=== PATIENT | female | born 1960 | race Caucasian/White ===

== ENCOUNTER 2020-09-09 08:01 | Outpatient (REF) | payer OTHER, SELFPAY | END 2020-09-09 08:02 | disposition home or self-care (01) | LOC: HO.LAB 08:01 | PROVIDERS: Visit Provider Internal Medicine | DX: Z20.822 Contact with and (suspected) exposure to COVID-19 (principal) | CPT/HCPCS: 36415; C9803; U0003 ==

== ENCOUNTER 2021-11-20 06:01 | Outpatient (REF) | payer OTHER, SELFPAY ==
--- NOTE | ~2021-11-20 | XR_ITS ---
EXAMINATION: BILATERAL HAND X-RAY CLINICAL INFORMATION: Pain COMPARISON: None TECHNIQUE: 3 views of each hand FINDINGS: Right: Bone alignment is normal. There is an old healed right distal radius fracture. No acute fracture or dislocation is seen. There is arthritis at the DIP joint of the fifth finger. Soft tissues are normal. Left: Bone alignment is normal. No fracture or dislocation is seen. There is arthritis at the DIP joints of the second and third fingers. Soft tissues are normal. XR/XR hand RT min 3V IMPRESSION: Old healed right distal radius fracture. Arthritis at the DIP joints.
--- NOTE | ~2021-11-20 | XR_ITS ---
EXAMINATION: BILATERAL HAND X-RAY CLINICAL INFORMATION: Pain COMPARISON: None TECHNIQUE: 3 views of each hand FINDINGS: Right: Bone alignment is normal. There is an old healed right distal radius fracture. No acute fracture or dislocation is seen. There is arthritis at the DIP joint of the fifth finger. Soft tissues are normal. Left: Bone alignment is normal. No fracture or dislocation is seen. There is arthritis at the DIP joints of the second and third fingers. Soft tissues are normal. XR/XR hand LT min 3V IMPRESSION: Old healed right distal radius fracture. Arthritis at the DIP joints.
[2021-11-20 06:28] LABS: MANUAL DIFF FLAG NO
[2021-11-20 07:22] LABS: Basophils Percent Auto 0.5 % (0-2); Eosinophils Absolute Auto 0.1 X10*3/uL (0.0-0.4); Eosinophils Percent Auto 1.6 % (0-4); Hematocrit 41.6 % (37.0-47.0); Hemoglobin 13.8 g/dl (12.0-16.0); Imm Gran Abs Auto 0.02 X10*3/uL (0.00-0.03); Imm Gran Pct Auto 0.3 % (0.0-0.4); Lymphocytes Absolute Auto 2.4 X10*3/uL (1.2-4.9); Lymphocytes Percent Auto 37.9 % (20-40); Mean Corpuscular HGB Conc 33.2 g/dl (31.0-35.0); Mean Corpuscular Hemoglobin 28.8 pg (27.0-33.0); Mean Corpuscular Volume 86.7 fL (80.0-98.0); Mean Platelet Volume 9.2 fL (9.4-12.3); Monocytes Absolute Auto 0.4 X10*3/uL (0.1-1.2); Neutrophils Absolute Auto 3.3 x10*3/uL (2.0-8.3); Neutrophils Percent Auto 52.7 % (45-73); Platelet Count 240 X10*3/uL (160-400); Red Cell Distribution Width 13.1 % (11.0-16.0); White Blood Count 6.3 X10*3/uL (4.8-10.8)
[2021-11-20 07:29] LABS: Estimated Average Glucose 111 mg/dL; Hemoglobin A1c % 5.5 %
[2021-11-20 07:51] LABS: Alanine Aminotransferase 21 U/L (0-31); Alkaline Phosphatase 113 U/L (39-117); Anion Gap 14 (12-20); Aspartate Amino Transferase 20 U/L (5-31); Bilirubin Total 0.6 mg/dL (0.0-1.0); Blood Urea Nitrogen 15 mg/dL (9-16); C Reactive Protein 0.23 mg/dL (< or = 0.50); Calcium 9.1 mg/dL (8.4-10.2); Carbon Dioxide 19 mmol/L (22-29); Chloride 112 mmol/L (96-108); Cholesterol 198 mg/dL; Estimated Glomerular Filt Rate > 60; Glucose Random 91 mg/dL (60-115); HDL Cholesterol 41 mg/dL; Potassium 3.9 mmol/L (3.3-5.1); Rheumatoid Factor < 15.0 IU/mL (<15.0); Sodium 141 mmol/L (135-145); Total Protein 6.7 g/dL (6.5-8.0); Triglycerides 412 mg/dL
[2021-11-20 08:09] LABS: Erythrocyte Sedimentation Rate 7 MM/HR (0-20)
[2021-11-20 08:12] LABS: TSH reflex Free T4 3.92 uIU/mL (0.32-4.0)
[2021-11-20 08:37] LABS: ~HepC Num1 0.08 S/CO (0.00-0.79); ~Hepatitis C Antibody Nonreactive (Nonreactive)
[2021-11-20 09:01] LABS: HBsAGNum1 0.22 S/CO (0.00-0.99); HIV AB/AG Nonreactive (Nonreactive); HIV Num 1 0.05 S/CO (0.00-0.99); Hepatitis B Core Antibody Nonreactive (Nonreactive); Hepatitis B Surface Antigen Negative (Negative)
[2021-11-20 09:07] LABS: ~Hepatitis B Surface Antibody NONREACTIVE (Nonreactive)
[2021-11-20 10:09] LABS: Syphilis Screen Nonreactive (Nonreactive)
[2021-11-22 08:17] LABS: Hepatitis A Antibody IgG Nonreactive (Nonreactive)
[2021-11-22 12:27] LABS: Anti Nuclear Antibody Screen NEGATIVE (NEGATIVE)
[2021-11-23 18:17] LABS: Cyclic Citrullinated Peptide <16 UNITS
[2021-11-25 12:56] LABS: Vitamin D 25-OH, D2 <4 ng/mL; Vitamin D 25-OH, D3 6 ng/mL; Vitamin D 25-OH, Total 6 ng/mL (30-100)
== END 2021-11-20 06:02 | disposition home or self-care (01) ==
LOC: HO.LAB 06:01
PROVIDERS: PCP Nurse Practitioner Family; Visit Provider Nurse Practitioner Family
DX: Z00.00 Encounter for general adult medical examination without abnormal findings (principal); F43.23 Adjustment disorder with mixed anxiety and depressed mood; M79.641 Pain in right hand; M79.642 Pain in left hand
CPT/HCPCS: 36415; 73130; 80053; 80061; 82306; 83036; 84443; 85025; 85652; 86038; 86039; 86140; 86200; 86431; 86592; 86704; 86706; 86708; 86780; 86803; 87340; 87389

== ENCOUNTER 2021-12-19 07:32 | Outpatient (REF) | payer OTHER, SELFPAY ==
--- NOTE | ~2021-12-19 | MM_ITS ---
EXAMINATION: MM SCREENING DIGITAL BREAST TOMOSYNTHESIS, BILATERAL CLINICAL INFORMATION: Screening. Asymptomatic. Benign right breast biopsy for calcifications 02/16/2013 (Benign breast tissue with a few microcysts with associated intraluminal polarizable microcalcifications). The lifetime risk of breast cancer based on the Tyrer-Cuzick Model is 5%. COMPARISON: Mammography: 05/31/2017, 12/14/2013, 02/16/2013, 11/21/2012, 11/13/2012 TECHNIQUE: Digital breast tomosynthesis is performed in both the craniocaudal and mediolateral oblique views along with computer-aided detection (CAD). Synthesized 2D images are generated from the tomosynthesis. FINDINGS: The breasts are heterogeneously dense, which may obscure small masses (ACR BI-RADS breast composition Category c). Parenchymal pattern is similar to prior study. There is no developing density or interval mass or architectural abnormality. There are scattered punctate calcifications in each breast similar to prior exam. The axilla and skin contours are unremarkable. There is old biopsy clip marker again seen right breast central mid lower inner quadrant. No significant changes. MM/MM tomosynthesis screening BI IMPRESSION: No mammographic evidence of malignancy. ASSESSMENT: BI-RADS 2: Benign RECOMMENDATION: Routine annual mammography screening. This patient's information was entered into a reminder system with a target due date for their next mammogram.
== END 2021-12-19 07:33 | disposition home or self-care (01) ==
LOC: HO.MAMMO 07:32
PROVIDERS: PCP Nurse Practitioner Family; Visit Provider Nurse Practitioner Family
DX: Z12.31 Encounter for screening mammogram for malignant neoplasm of breast (principal)
CPT/HCPCS: 77063; 77067

== ENCOUNTER → 2022-04-24 13:55 | Outpatient (BNVA) | payer OTHER, SELFPAY | PROVIDERS: PCP Nurse Practitioner Family; Visit Provider Orthopaedic Surgery | DX: M65.331 Trigger finger, right middle finger (principal); R20.0 Anesthesia of skin | CPT/HCPCS: 99202 ==

== ENCOUNTER 2022-05-03 09:56 | Outpatient (REF) | payer OTHER, SELFPAY ==
--- NOTE | 2022-05-03 09:59 | EMG_ITS ---
Right median and ulnar motor sensory studies were performed. Right radial sensory study was performed and paraspinal muscles were tested with a needle. 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 MD MATT Barakat/YESICA / [id number]
== END 2022-05-03 09:57 | disposition home or self-care (01) ==
LOC: HO.NEURO 09:56
PROVIDERS: Visit Provider Nurse Practitioner Family
DX: M25.521 Pain in right elbow (principal); R20.0 Anesthesia of skin
CPT/HCPCS: 95886; 95909

== ENCOUNTER → 2022-08-08 13:16 | Outpatient (BNVA) | payer OTHER, SELFPAY | PROVIDERS: PCP Nurse Practitioner Family; Visit Provider Orthopaedic Surgery | DX: M65.331 Trigger finger, right middle finger (principal); G56.01 Carpal tunnel syndrome, right upper limb | CPT/HCPCS: 99212 ==

== ENCOUNTER → 2022-09-11 15:15 | Outpatient (BNVA) | payer OTHER, SELFPAY | PROVIDERS: PCP Nurse Practitioner Family; Visit Provider Orthopaedic Surgery | DX: G56.01 Carpal tunnel syndrome, right upper limb (principal); M65.331 Trigger finger, right middle finger | CPT/HCPCS: 99212 ==

== ENCOUNTER 2022-09-13 06:49 | Day surgery (SDC) | payer OTHER, SELFPAY ==
[2022-09-06 14:41] VITALS: BMI 28.3
--- NOTE | 2022-09-12 13:22 | HO.ANESPROP2 ---
Documented by User: Malou Galeano NP 09/12/22 13:23 HPI - Anesthesia Eval Consult details Narrative: 62yo F for Right Carpal Tunnel Release, Middle finger Trigger Release PMFSH Active Problems Active Problems: All Active Problems (Updated 09/06/22 @ 14:35 by Shirley Benavidez RN) Trigger finger, right middle finger (Acute) Bilateral hand numbness (Acute) Carpal tunnel syndrome of right wrist (Acute) Past Medical History Medical History Anxiety Asthma GERD (gastroesophageal reflux disease) Hiatal hernia High cholesterol Insomnia Panic attacks Recent bereavement Stomach ulcer Surgical History Surgical History History of arthroscopy of both knees History of partial hysterectomy Hx of section Hx of colonoscopy Social History Social History Household Members Other:: mother Are you a primary rehab care assistant to a significant other at home: Yes (mother in her 80's still drives) Do you presently have visiting nurse or other home services: No Patient Tobacco Use Status: Current everyday Tobacco user Tobacco use type: Cigarette Use of substances other than those prescribed or required for medical reasons: No Have you been hit, kicked, punched, or otherwise hurt by someone within the past year? If so, by whom?: No Are you DNR?: No Advance Directives: No Advance Directives Information Provided: Yes Advance Directives on File: No Recently lost weight without trying: No Nutrition Risks: No Nutritional Risk Meds Allergies Allergy/AdvReac Type Severity Reaction Status Date / Time aspirin [ASA] Allergy Severe GI PAIN, Verified 09/11/22 15:22 stomach upset and ulcer bee pollen [bee stings] Allergy Severe Anaphylaxis Verified 09/11/22 15:22 NSAIDS (Non-Steroidal Allergy Severe GI PAIN Verified 09/11/22 15:22 Anti-Inflamma [NSAIDS (NON-STEROIDAL ANTI-INFLAMMA] cortisone AdvReac Severe swelling Verified 09/11/22 15:22 Seasonal Allergies Allergy Severe Itchy Uncoded 09/11/22 15:22 Eyes, sneezing Home Medications Medication Instructions Recorded Confirmed Last Taken Type albuterol sulfate 2.5 mg/3 mL 2.5 mg inhalation TID PRN asthma 04/24/22 09/13/22 Unknown History (0.083 %) solution for nebulization albuterol sulfate 90 mcg/actuation 2 puff inhalation Q4-6H PRN 04/24/22 09/06/22 Unknown History aerosol inhaler wheezing atorvastatin 10 mg tablet 10 mg PO DAILY 04/24/22 09/06/22 Unknown History cetirizine 10 mg tablet 10 mg PO DAILY PRN allergies 04/24/22 09/06/22 Unknown History cholecalciferol (vitamin D3) 50 50 mcg PO DAILY 04/24/22 09/06/22 Unknown History mcg (2,000 unit) capsule (Vitamin D3) ergocalciferol (vitamin D2) 1,250 1,250 mcg PO QWEEK 04/24/22 09/06/22 Unknown History mcg (50,000 unit) capsule (Vitamin D2) fluticasone propionate 230 2 puff inhalation DAILY 04/24/22 09/06/22 Unknown History mcg-salmeterol 21 mcg/actuation HFA inhaler (Advair HFA) fluticasone propionate 50 2 spray intranasal DAILY 04/24/22 09/06/22 Unknown History mcg/actuation nasal spray,suspension hydroxyzine HCl 25 mg tablet 25 mg PO TID 04/24/22 09/06/22 Unknown History omeprazole 40 mg capsule,delayed 40 mg PO DAILY 04/24/22 09/06/22 09/13/22 History release paroxetine HCl 20 mg tablet 20 mg PO DAILY 04/24/22 09/06/22 Unknown History epinephrine 0.3 mg/0.3 mL 0.3 mg IM DAILY 09/06/22 09/13/22 Unknown History injection, auto-injector Exam Exam Date and Time: September 12, 2022 1322 Height,Weight and Vital Signs: Height 5 ft Weight 65.771 kg Assessment and Plan Assessment Anesthesia Assessment: Chart Reviewed Documented by User: Kat Villatoro MD 09/13/22 08:20 FOR[facility]LY [facility], [facility] Past Medical History Medical History Anxiety Asthma GERD (gastroesophageal reflux disease) Hiatal hernia High cholesterol Insomnia Panic attacks Recent bereavement Stomach ulcer Family History Family history of problems with anesthesia: No Surgical History Surgical History History of arthroscopy of both knees History of partial hysterectomy Hx of section Hx of colonoscopy History of Problems with Anesthesia: No Social History Social History Household Members Other:: mother Are you a primary rehab care assistant to a significant other at home: Yes (mother in her 80's still drives) Do you presently have visiting nurse or other home services: No Patient Tobacco Use Status: Current everyday Tobacco user Tobacco use type: Cigarette Use of substances other than those prescribed or required for medical reasons: No Have you been hit, kicked, punched, or otherwise hurt by someone within the past year? If so, by whom?: No Are you DNR?: No Advance Directives: No Advance Directives Information Provided: Yes Advance Directives on File: No Recently lost weight without trying: No Nutrition Risks: No Nutritional Risk Meds Allergies Allergy/AdvReac Type Severity Reaction Status Date / Time aspirin [ASA] Allergy Severe GI PAIN, Verified 09/11/22 15:22 stomach upset and ulcer bee pollen [bee stings] Allergy Severe Anaphylaxis Verified 09/11/22 15:22 NSAIDS (Non-Steroidal Allergy Severe GI PAIN Verified 09/11/22 15:22 Anti-Inflamma [NSAIDS (NON-STEROIDAL ANTI-INFLAMMA] cortisone AdvReac Severe swelling Verified 09/11/22 15:22 Seasonal Allergies Allergy Severe Itchy Uncoded 09/11/22 15:22 Eyes, sneezing Home Medications Medication Instructions Recorded Confirmed Last Taken Type albuterol sulfate 2.5 mg/3 mL 2.5 mg inhalation TID PRN asthma 04/24/22 09/13/22 Unknown History (0.083 %) solution for nebulization albuterol sulfate 90 mcg/actuation 2 puff inhalation Q4-6H PRN 04/24/22 09/06/22 Unknown History aerosol inhaler wheezing atorvastatin 10 mg tablet 10 mg PO DAILY 04/24/22 09/06/22 Unknown History cetirizine 10 mg tablet 10 mg PO DAILY PRN allergies 04/24/22 09/06/22 Unknown History cholecalciferol (vitamin D3) 50 50 mcg PO DAILY 04/24/22 09/06/22 Unknown History mcg (2,000 unit) capsule (Vitamin D3) ergocalciferol (vitamin D2) 1,250 1,250 mcg PO QWEEK 04/24/22 09/06/22 Unknown History mcg (50,000 unit) capsule (Vitamin D2) fluticasone propionate 230 2 puff inhalation DAILY 04/24/22 09/06/22 Unknown History mcg-salmeterol 21 mcg/actuation HFA inhaler (Advair HFA) fluticasone propionate 50 2 spray intranasal DAILY 04/24/22 09/06/22 Unknown History mcg/actuation nasal spray,suspension hydroxyzine HCl 25 mg tablet 25 mg PO TID 04/24/22 09/06/22 Unknown History omeprazole 40 mg capsule,delayed 40 mg PO DAILY 04/24/22 09/06/22 09/13/22 History release paroxetine HCl 20 mg tablet 20 mg PO DAILY 04/24/22 09/06/22 Unknown History epinephrine 0.3 mg/0.3 mL 0.3 mg IM DAILY 09/06/22 09/13/22 Unknown History injection, auto-injector Exam Airway Mallampati Class: II TM Dist: >3cm Neck ROM: Full Heart: rrr Lungs: cta Assessment and Plan Assessment Anesthesia Assessment: Anesthesia Plan Discussed Final Anesthetic Review Family History of Problems with Anesthesia: No History of Problems with Anesthesia: No NPO: Yes ASA Class: II Final Preanesthetic Review: No Changes in Pt Med Stat, Meds/Allgs Chart Reviewed, Consent Obtained/Reviewed and Anes Risks/Benef Reviewed Patient Risk: Low Procedure Risk: Low Anesthetic Plan Anesthetic Plan: GA, Agree w/ Assess. and Plan and Other (extreme degree of anxiety, needed 2mg midaz i.v to stay in pre-op) Disposition: Standard PACU
[2022-09-13] VITALS (9 sets, daily range): BP systolic 128–150; BP diastolic 83–93; PULSE 68–90; RESP 16–17; TEMP 36.3–36.8; O2SAT 96–100
[2022-09-13] MEDS: Lactated Ringers 1,000 ML 100 ML IVCONT (07:33)
[2022-09-13] MEDS: Midazolam HCl/PF 2 MG/2 ML VIAL IVPUSH (08:27)
--- NOTE | 2022-09-13 09:04 | MHC.SHP ---
Pre-Procedural Eval Section A Date of Service: 09/13/22 The patient is an INPATIENT: No Changes since office visit: No Cold of Flu in the past 2 weeks, No New Medical Problems, No Changes in Medication and No Patient answered all questions The History & Physical has been completed within 30 days and I have reviewed it.: Yes Section B Chief Complaint: Trigger finger, right middle finger,carpal tunnel Allergies: Allergies Allergy/AdvReac Type Severity Reaction Status Date / Time aspirin [ASA] Allergy Severe GI PAIN, Verified 09/11/22 15:22 stomach upset and ulcer bee pollen [bee stings] Allergy Severe Anaphylaxis Verified 09/11/22 15:22 NSAIDS (Non-Steroidal Allergy Severe GI PAIN Verified 09/11/22 15:22 Anti-Inflamma [NSAIDS (NON-STEROIDAL ANTI-INFLAMMA] cortisone AdvReac Severe swelling Verified 09/11/22 15:22 Seasonal Allergies Allergy Severe Itchy Uncoded 09/11/22 15:22 Eyes, sneezing Plan I have reviewed the history and physical and performed a pertinent physical examination on my patient. No changes have occurred unless specified. Time Spent With Patient Time: Total time managing care of this patient today ____ minutes.
--- NOTE | 2022-09-13 09:04 | W.PM.OPN ---
Operative Note Operative Note Date of Service: 09/13/22 Narrative: Preop diagnosis: 1. right Carpal tunnel syndrome 2. Right middle finger trigger finger Postop diagnosis: same Procedure: 1. right Carpal tunnel release 2. Right middle finger trigger release 3. Tenosynovectomy right middle finger FDS tendon, and excision of tenosynovium from the carpal tunnel, sent for histopathology Surgeon: Taylor Roper MD Anesthesia: general Findings: Abundant white thickened tenosynovium about the right middle finger FDS tendon, and also about the median nerve and tendons in the carpal tunnel. EBL: Less than 5 mL Specimens: Tenosynovium from right middle finger FDS tendon, and a small sample from within the carpal tunnel for histopathology,, also requested testing for rheumatoid arthritis Complications: None Disposition: Brought to recovery room in stable condition Plan: Follow-up for 10-14 days for wound check and suture removal, and also to check histopathology. Indications: The patient is 62 years old, with a right middle finger trigger finger and right carpal tunnel syndrome that has been unresponsive to nonoperative management. The risks and benefits of operative treatment including but not limited to risk of damage to blood vessels, nerves, tendons, infection, persistent pain, persistent symptoms, or possible need for additional surgery were discussed with the patient and the patient wishes to proceed with surgery. Procedure: Once consent was obtained the patient was brought back to the operating suite placed on the operating table in a supine position. Because of her anxiety, general anesthesia was performed by the anesthesia team. Tourniquet was applied the proximal aspect of her right upper extremity in the limb was prepped and draped in a standard surgical fashion. The limb was elevated and exsanguinated with an Esmarch bandage the tourniquet inflated for a total tourniquet time of 21 minutes. A 1.5 cm oblique incision was made centered over the A1 carter of the right middle finger . The incision was made through the skin to the subcutaneous tissues using a #15 blade. Careful dissection was made down to the level of the A1 carter using tenotomy scissors, with care being taken to protect the nearby neurovascular structures. A longitudinal incision was made in the A1 carter 1st using a #15 blade, then using tenotomy scissors under direct visualization. The A1 carter was noted to be thickened. We also noted abundant white tenosynovium about the flexor tendons. A tenosynovectomy was performed excising this thickened tenosynovium from about the FDS and FDP tendons. This was placed on the back table to be sent for histopathology. Following our A1 carter release and tenosynovectomy, we no longer saw any locking or catching of the digit with passive flexion and extension. A 2.0 cm longitudinal incision was made centered over the right carpal tunnel. The incision was made through the skin to the subcutaneous tissues using a #15 blade. Dissection was made down to the level of the transverse carpal ligament with care being taken to protect the palmar cutaneous nerve. Once the transverse carpal ligament was clearly visualized, a longitudinal incision was made in the transverse carpal ligament 1st using a #15 blade, then using tenotomy scissors under direct visualization. Care was taken to look for and protect the motor branch of the median nerve when seen in this area. Within the carpal tunnel I appreciated some hypertrophic white tenosynovium about the median nerve and tendons. A sample of this was taken in added to our other specimen to be sent for histopathology and also to evaluate for rheumatoid arthritis. Once satisfied with our carpal tunnel release and trigger release and tenosynovectomy the wounds were copiously irrigated with normal saline and hemostasis was obtained with a brief period of local pressure. The skin edges were reapproximated with some 5.0 nylon suture material, the wounds were infiltrated with some 0.5% plain ropivacaine for postop pain control, and a sterile dressing was applied. The patient appears to have tolerated the procedure well and with no complications. All digits were well vascularized at the conclusion of the case.
[2022-09-13] MEDS: ondansetron HCL 4 MG/2 ML VIAL IVPUSH (10:14)
== END 2022-09-13 11:59 ==
LOC: HO.SSS 06:50
PROVIDERS: Visit Provider Orthopaedic Surgery
PROC: (CPT 64721; principal; 2022-09-13 08:40)
PROC: (CPT 26055; 2022-09-13 08:40)
DX: G56.01 Carpal tunnel syndrome, right upper limb (principal); M65.331 Trigger finger, right middle finger; J45.909 Unspecified asthma, uncomplicated; E78.00 Pure hypercholesterolemia, unspecified; F41.0 Panic disorder [episodic paroxysmal anxiety]; F41.1 Generalized anxiety disorder; Z79.51 Long term (current) use of inhaled steroids; Z79.899 Other long term (current) drug therapy; Z88.8 Allergy status to other drugs, medicaments and biological substances; Z63.4 Disappearance and death of family member; F17.210 Nicotine dependence, cigarettes, uncomplicated
CPT/HCPCS: 64721; 26055; 88304; J1100; J2250; J2405; J2550; J2795; J3010